=== PATIENT | female | born 1960 | race Caucasian/White ===

== ENCOUNTER 2023-04-09 11:07 | Emergency (ER) | payer OTHER ==
[~2023-04-09] VITALS: Ht 172.7 cm; Wt 102.1 kg
[2023-04-09 11:07] VITALS: BP_SYST 95
--- NOTE | 2023-04-09 11:07 | NUR ---
CALLED TO FRONT OF HOSPITAL FOR PERSON WHO FELL, ASSISTED TO WHEELCHAIR AND BROUGHT INTO BED #1, TRIAGED AND WILL ASSUME CARE
--- NOTE | 2023-04-09 11:13 | NUR ---
PT BIB SELF FROM HOME C/O PAIN FROM MECHANICAL FALL. PT STATES PAIN IN RT KNEE, RT SAMARITAN, UPPER RIGHT ABD, AND SAVANAH HANDS. PT STATES ALL PAIN FROM FALL. PT STATES HX OF DM AND HTN. PT RESTING IN BED VSS COMFORTABLE AT THIS TIME
--- NOTE | 2023-04-09 11:15 | NUR ---
ER at bedside examining patient.
[2023-04-09 11:47] LABS: BASOPHILS # (AUTO) 0.1 K/uL (0.0-0.2); BASOPHILS % (AUTO) 0.8 % (0.0-2.0); EOSINOPHILS # (AUTO) 0.1 K/uL (0.0-0.4); EOSINOPHILS % (AUTO) 1.5 % (0.0-4.0); HEMOGLOBIN 12.1 g/dL (12.0-16.0); LYMPHOCYTES # (AUTO) 2.8 K/uL (1.0-5.5); LYMPHOCYTES % (AUTO) 29.5 % (20.5-51.5); MEAN CORPUSCULAR HEMOGLOBIN 30 pg (27-31); MEAN CORPUSCULAR HGB CONC 34 % (32-36); MEAN CORPUSCULAR VOLUME 88 fL (79.0-98.0); MONOCYTES # (AUTO) 0.6 K/uL (0.0-1.0); MONOCYTES % (AUTO) 6.2 % (1.7-9.3); NEUTROPHILS # (AUTO) 5.9 K/uL (1.8-7.7); PLATELET COUNT (AUTO) 336 K/uL (130-430); RED BLOOD CELL COUNT(AUTO) 4.09 MIL/uL (4.2-6.2); RED CELL DISTRIBUTION WIDTH 14.5 % (9.0-15.0); WHITE BLOOD COUNT (AUTO) 9.5 K/uL (4.8-10.8)
[2023-04-09 12:01] LABS: ALBUMIN 3.7 g/dL (3.4-4.8); CREATININE 0.99 mg/dL (0.55-1.30); TOTAL BILIRUBIN 0.8 mg/dL (0.0-1.0)
--- NOTE | 2023-04-09 12:01 | NUR ---
XRAYS BEING DONE AT BEDSIDE. FAMILY AT BEDSIDE FOR SUPPORT
--- NOTE | 2023-04-09 14:08 | NUR ---
PT STATES PAIN TO RIGHT EYE WITH SLIGHT SWELLING TO UPPER EYE LID/BROW. DR MOROCHO NOTIFIED AND ORDERS RECEIVED. DAUGHTER AT BEDSIDE FOR SUPPORT
--- NOTE | 2023-04-09 14:16 | NUR ---
DR MOROCHO SPEAKING WITH PT AND PTS DAUGHTER REGARDING TEST RESULTS.
--- NOTE | 2023-04-09 14:34 | NUR ---
TAKEN TO RADIOLOGY VIA [facility] FOR TESTING.
[2023-04-09] MEDS ORDERED: NAPR-690 PO ×2 (15:36→15:49)
--- NOTE | 2023-04-09 15:50 | NUR ---
DR MOROCHO DISCHARGING PT AT THIS TIME. WILL ASSIST TO CAR
--- NOTE | 2023-04-09 16:04 | NUR ---
ASSISTED OUT TO CAR BY TWO STAFF, PLACED IN CAR
== END 2023-04-09 16:04 | disposition home or self-care (01) ==
LOC: SED 11:07
DX: S82.044A Nondisplaced comminuted fracture of right patella, initial encounter for closed fracture (principal); S20.211A Contusion of right front wall of thorax, initial encounter; E87.20 Acidosis, unspecified; E86.0 Dehydration; E11.9 Type 2 diabetes mellitus without complications; Z79.899 Other long term (current) drug therapy; W19.XXXA Unspecified fall, initial encounter; Y93.89 Activity, other specified; Y92.89 Other specified places as the place of occurrence of the external cause; Y99.8 Other external cause status
CPT/HCPCS: 36415; 70450-TC; 71100; 72125-TC; 73560-TC; 76376; 80053; 83605; 83880; 84484; 85025; 85379; 93005; 99285